=== PATIENT | male | born 1985 | race African-American/Black ===

== ENCOUNTER 2019-06-16 10:51 | Emergency (ER) | payer SELFPAY ==
[2019-06-16 11:06] VITALS: BP 153/95; PULSE 95; RESP 16; TEMP 38.4; O2SAT 100
--- NOTE | 2019-06-16 11:07 | ED.GENADULT ---
HPI - General Adult General Chief complaint: Upper Respiratory Infection Stated complaint: Head Pain,Back Pain Time Seen by Provider: 06/16/19 11:20 Source: patient and RN notes reviewed Mode of arrival: ambulatory Limitations: no limitations History of Present Illness HPI narrative: 33-year-old male presents with concern for fever, sweats, chills, headache, back pain, body aches, rhinorrhea. Reports symptoms started yesterday. Denies any medications for his symptoms MD complaint: Flu symptoms Related Data Home Medications Medication Instructions Recorded Confirmed No Home Medications 06/16/19 06/16/19 Allergies Allergy/AdvReac Type Severity Reaction Status Date / Time No Known Allergies Allergy Verified 06/16/19 11:35 Review of Systems Review of Systems: Narrative: CONSTITUTIONAL: Reports malaise, chills, sweats, fever. EYES: Denies visual changes, redness, or discharge. ENT: Reports rhinorrhea, congestion, scratchy throat. Denies sinus pain, otalgia and sore throat. CARDIOVASCULAR: Denies chest pain, palpitations, or edema. RESPIRATORY: Reports cough. Denies dyspnea. GASTROINTESTINAL: Denies abdominal pain, nausea, vomiting, diarrhea SKIN: Denies rash or itching. MUSCULOSKELETAL: Reports myalgia, backache. NEUROLOGIC: Reports headache. All systems reviewed & are unremarkable except as noted in HPI and below PMFSH Social History Social History Gender identity (if verbalized by the patient): Male Comments At time of signature, agree with nursing past medical, surgical, social and family history. There is no relevant family history pertinent to the presenting complaint Exam Narrative: Exam Narrative: GENERAL: Well-appearing, well-nourished, and in no acute distress. HEAD: Normocephalic EYES: PERRLA, conjunctivae clear ENT: Nares clear, turbinates edematous and erythematous, clear discharge. Mucous membranes moist. TM pearly berumen with dull light reflex bilaterally; no tragal tenderness. Oropharynx mildly erythematous without lesions. Tonsils not enlarged and without exudate, no drooling, no hoarseness, no trismus. NECK: Supple. No lymphadenopathy CHEST: Clear to auscultation, breath sounds equal. No wheezing, rhonchi, rales, or stridor. No respiratory distress, speaks in full sentences. HEART: Regular rate and rhythm. No murmur heard. Normal peripheral pulses. SKIN: Warm, dry, no rash. NEURO: Alert and oriented x3. PSYCH: Normal mood and affect Course Course Emergency Course: Patient is aware of diagnosis, understands and agrees to treatment plan. Anticipatory guidance given. Patient agrees to follow-up as directed and is aware of reasons to seek care at the emergency department. Portions of this record may have been created with voice recognition software Vital Signs Vital signs: Vital Signs Temperature 101.2 F H 06/16/19 11:06 Pulse Rate 95 06/16/19 11:06 Respiratory Rate 16 06/16/19 11:06 Blood Pressure 153/95 H 06/16/19 11:06 Pulse Oximetry 100 06/16/19 11:06 Temperature 101.2 F H 06/16/19 11:06 Pulse Rate 95 06/16/19 11:06 Respiratory Rate 16 06/16/19 11:06 Blood Pressure 153/95 H 06/16/19 11:06 Pulse Oximetry 100 06/16/19 11:06 Your blood pressure was elevated above 120/80 today at [facility]. This puts you above the threshold for follow up. Please schedule a follow up visit with your personal physician as soon as possible, for further evaluation and treatment. Even blood pressure exceeding 120/80 may indicate pre-hypertension. Medical Decision Making MDM Narrative Medical decision making narrative: Differential diagnosis considered: Strep pharyngitis, allergic rhinitis, upper respiratory tract infection, sinusitis, rhinosinusitis, nasopharyngitis. viral pharyngitis, otitis media, otitis externa, pneumonia, bronchitis, viral cough syndrome, viral syndrome, and influenza. Exam findings show no acute concerns or changes; patient is non-toxic appearing and is in
== END 2019-06-16 11:39 | disposition home or self-care (01) ==
PROVIDERS: Emergency Provider Nurse Practitioner
DX: R51 Headache (principal); R50.9 Fever, unspecified; R52 Pain, unspecified; J34.89 Other specified disorders of nose and nasal sinuses; M54.9 Dorsalgia, unspecified
CPT/HCPCS: 87081; 87804; 87880; 99203; G0463

== ENCOUNTER 2021-10-28 09:18 | Emergency (ER) | payer OTHER, SELFPAY ==
[2021-10-28 09:28] VITALS: BP 120/84; PULSE 89; RESP 16; TEMP 37.2; O2SAT 99
--- NOTE | 2021-10-28 09:29 | ED.URI ---
HPI - URI/Sore Throat General Chief Complaint: Upper Respiratory Infection Stated Complaint: fever/sore throat Time Seen by Provider: 10/28/21 09:29 Source: patient Mode of arrival: ambulatory Limitations: no limitations History of Present Illness HPI Narrative: 35-year-old male presents with complaint of sore throat, fatigue, feeling lightheaded, cough, congestion for 2 to 3 days. Denies chest pain and shortness of breath. No nausea vomiting diarrhea. Is COVID vaccinated. Reports temperature 2 days ago was 102 Fahrenheit. Taking Tylenol to treat symptoms. All systems reviewed and negative except as noted above. Related Data Home Medications Medication Instructions Recorded Confirmed No Home Medications 06/16/19 10/28/21 Allergies Allergy/AdvReac Type Severity Reaction Status Date / Time No Known Allergies Allergy Verified 10/28/21 09:27 Review of Systems Review of Systems: CONSTITUTIONAL: Reports fever, chills, or sweats. EYES: Denies visual changes, redness, or discharge. ENT: Reports rhinorrhea, congestion, sore throat. Denies otalgia. CARDIOVASCULAR: Denies chest pain, palpitations, or edema. RESPIRATORY: Reports cough. Denies dyspnea. GASTROINTESTINAL: Denies abdominal pain, nausea, vomiting, or diarrhea. GENITOURINARY: Denies dysuria or hematuria. SKIN: Denies rash or itching. MUSCULOSKELETAL: Denies back pain, joint pain, or myalgia. NEUROLOGIC: Denies headache, numbness, or weakness. PSYCHIATRIC: Denies anxiety or depression. All other systems reviewed are negative, except as documented in HPI. PMFSH Social History Social History Gender identity (if verbalized by the patient): Male Comments At time of signature, agree with nursing past medical, surgical, social and family history. There is no relevant family history pertinent to the presenting complaint. Exam Narrative: GENERAL: This is a well-nourished, well-developed patient, in no apparent distress. HEAD: normocephalic, atraumatic. EYES: PERRL. Sclera clear/white. Vision is grossly intact. EARS: External ears normal, auditory canals clear and without drainage, TMs normal without perforation. Hearing grossly intact. NOSE: External nose normal with no obvious nasal discharge, nares without redness, no rhinorrhea. THROAT: Mucous membranes moist, mild erythema to posterior pharynx. NECK: Neck supple, non-tender without lymphadenopathy, masses or thyromegaly. CARDIOVASCULAR: Regular rate and rhythm without murmurs, gallops, or rubs. RESPIRATORY: Clear to auscultation. Breath sounds equal bilaterally. No wheezes, rales, or rhonchi. SKIN: warm, Dry, intact with no suspicious lesions or rash, good texture and turgor. NEURO: awake, alert, and oriented to person, place and time. There were no obvious focal neurologic abnormalities. EXTREMITIES: No joint tenderness, effusion, or edema noted. Course Course Level of Care: Express Care Visit Vital Signs Vital signs: Vital Signs Temperature 37.2 C 10/28/21 09:28 Pulse Rate 89 10/28/21 09:28 Respiratory Rate 16 10/28/21 09:28 Blood Pressure 120/84 10/28/21 09:28 Pulse Oximetry 99 10/28/21 09:28 Oxygen Delivery Room Air 10/28/21 09:28 Temperature 37.2 C 10/28/21 09:28 Pulse Rate 89 10/28/21 09:28 Respiratory Rate 16 10/28/21 09:28 Blood Pressure 120/84 10/28/21 09:28 Pulse Oximetry 99 10/28/21 09:28 Oxygen Delivery Room Air 10/28/21 09:28 Reviewed MDM - URI/Sore Throat MDM Narrative Medical decision making narrative: Patient is aware of diagnosis, understands and agrees to treatment plan. Anticipatory guidance given. Patient agrees to follow-up as directed and is aware of reasons to seek care at the emergency department. Portions of this record may have been created with voice recognition software Differential Diagnosis Differential diagnosis: Likely upper respiratory infection, sinusitis, viral infection, influenza, pharyngitis and other
== END 2021-10-28 09:58 | disposition home or self-care (01) ==
PROVIDERS: Emergency Provider Nurse Practitioner Family
DX: U07.1 COVID-19 (principal)
CPT/HCPCS: 87426; 87804; 99212; C9803; G0463